=== PATIENT | male | born 2000 | race Caucasian/White ===

== ENCOUNTER 2020-10-26 18:38 | Emergency (ER) | payer OTHER ==
[~2020-10-26] VITALS: Ht 180 cm; Wt 83.0 kg
[2020-10-26] MEDS ORDERED: LIDOCAINE 1% INJ 20 ML 20 ML VIAL INJ ONE (20:00)
[2020-10-26] MEDS ORDERED: TETANUS,DIPTH,PERTUSS P/F (BOOSTRIX) 0.5 ML VIAL IM ONE (20:00)
--- NOTE | 2020-10-26 20:00 | ED General ---
General Chief Complaint: Laceration Stated Complaint: CHIN INJURY Nursing Triage Note: PT AMB TO TRIAGE PT CO OF LAC TO L SIDE CHIN, PT STATES WAS DOING A BASKET CATCH AND WAS HIT IN CHIN. LAC APPROX 3CM. DENIES LOC History of Present Illness Date Seen by Provider: Oct 26, 2020 Time Seen by Provider: 19:15 Initial Comments 20-year-old male presents for a laceration to his chin. He is unsure of his last tetanus vaccine. He was doing a stunt at cheer when he was hit by a head to his chin. He had immediate onset of injury with bleeding. He denies headache or other injuries. Timing/Duration: 1-3 Hours Associated Systoms: Denies Symptoms Allergies and Home Medications Allergies Coded Allergies: No Known Drug Allergies (Unverified , 10/26/20) Patient Home Medication List Home Medication List Reviewed: Yes Review of Systems Review of Systems Constitutional: no symptoms reported, see HPI Skin: see HPI, other (3.5 cm laceration to chin) Past Lbnjklq-Wzlzoo-Lgkjiw Hx Patient Social History Tobacco Use?: No Substance use?: No Alcohol Use?: Yes Alcohol Frequency: Rarely Pt feels they are or have been: No Family Medical History Reviewed Nursing Family Hx Physical Exam Vital Signs Vital Signs - First Documented 10/26/20 19:03 Temp 37.0 Pulse 76 Resp 20 B/P (MAP) 135/71 (92) Pulse Ox 96 O2 Delivery Room Air Capillary Refill : Less Than 3 Seconds Height, Weight, BMI Height: '" Weight: lbs. oz. kg; 25.00 BMI Method: General Appearance: No Apparent Distress, WD/WN HEENT: PERRL/EOMI, TMs Normal, Normal ENT Inspection, Pharynx Normal Neck: Full Range of Motion, Normal Inspection, Non Tender, Supple Respiratory: Chest Non Tender, Lungs Clear, Normal Breath Sounds Cardiovascular: Regular Rate, Rhythm, No Murmur, Normal Peripheral Pulses Neurologic/Psychiatric: Alert, Oriented x3, No Motor/Sensory Deficits, Normal Mood/Affect Skin: Normal Color, Warm/Dry, Other (3.5 cm lac to chin) Procedures/Interventions Wound Location: Face Wound Length (cm): 3.5 Wound's Depth, Shape: into muscle Wound Explored: clean Irrigated w/ Saline (ccs): 500 Betadine Prep?: Yes Anesthesia: 1% Lidocaine Volume Anesthetic (ccs): 5 Wound Debrided: minimal Suture: Ethlion Suture Size: 5-0 Number of Sutures: 4 Sterile Dressing Applied?: Yes Progress Wound copiously irrigated with sterile saline and Hibiclens. Well approximated with 4 simple sutures. Patient tolerated procedure well. Bulky sterile dressing applied. Progress/Results/Core Measures Suspected Sepsis SIRS Temperature: Pulse: 76 Respiratory Rate: 20 Blood Pressure 135 /71 Mean: 92 Results/Orders My Orders Orders - AQUILES HAMILTON Dipht,Pertuss(Acell),Tet Adult (Boostrix (10/26/20 20:00) Lidocaine 1% Inj 20 Ml (Xylocaine 1% Inj (10/26/20 20:00) Medications Given in ED Current Medications Medications Dose Ordered Sig/Yecenia Route Start Time Stop Time Status Last Admin Dose Admin Diphtheria/ Tetanus/Acell Pertussis 0.5 ml ONCE ONCE IM 10/26/20 20:00 10/26/20 20:01 DC 10/26/20 20:50 0.5 ML Lidocaine HCl 20 ml ONCE ONCE INJ 10/26/20 20:00 10/26/20 20:01 DC 10/26/20 20:30 20 ML Vital Signs/I&O 10/26/20 10/26/20 19:03 20:53 Temp 37.0 37.0 Pulse 76 76 Resp 20 20 B/P (MAP) 135/71 (92) 135/71 (92) Pulse Ox 96 96 O2 Delivery Room Air Room Air Capillary Refill : Less Than 3 Seconds Blood Pressure Mean: 92 Departure Impression Primary Impression: Laceration of chin Qualified Codes: S01.81XA - Laceration without foreign body of other part of head, initial encounter Disposition: HOME, SELF-CARE Condition: Improved Departure-Patient Inst. Decision time for Depature: 20:00 Patient Instructions: Laceration Repair With Stitches (DC) Add. Discharge Instructions: Keep wound clean and dry. You may alternate between Tylenol 650 mg and ibuprofen 600 mg every 4 hours as needed for pain. Watch for signs of infection: Redness, swelling, fever, increased pain, discolored or foul-smelling drainage. You can follow-up at the [facility] in 5 days for suture removal, or return to the Emergency Dept. You may shower, don't let water hit directly on the wound. After showering, clean the wound with alcohol. Change your mask 2-3 times a day, get air to chin, when at home. Return to the emergency dept for new, urgent health care needs. All discharge instructions reviewed with patient and/or family. Voiced und erstanding. Copy Copies To 1: DELON MAJOR MD, AMY ARNP Oct 26, 2020 20:00
[2020-10-26 20:53] VITALS: BP 135/71
== END 2020-10-27 20:53 | disposition home or self-care (01) ==
LOC: ER 18:42
DX: S01.81XA Laceration without foreign body of other part of head, initial encounter (principal); Z23 Encounter for immunization; W22.8XXA Striking against or struck by other objects, initial encounter
CPT/HCPCS: 12011; 90715

== ENCOUNTER 2020-10-31 11:46 | Emergency (ER) | payer OTHER ==
[~2020-10-31] VITALS: Ht 177 cm; Wt 150.0 kg
[2020-10-31 11:48] VITALS: BP 122/71
== END 2020-10-31 12:09 | disposition home or self-care (01) ==
LOC: EDUNIT# 11:46 → ER 11:48
DX: Z48.02 Encounter for removal of sutures (principal)